=== PATIENT | male | born 1980 | race Caucasian/White ===

== ENCOUNTER → 2017-03-26 | Outpatient (CLI) | payer OTHER ==
[~2017-03-26] MED LIST: IBUP-1459 PO; ZNTT/150 PO
--- NOTE | 2017-03-26 14:46 | DIAGNOSTIC IMAGING REPORT ---
LUMBAR SPINE 5 VIEWS HISTORY: Low back pain. FALL AT WORK COMPARISON: None. FINDINGS: There is no fracture. No subluxation. Mild disc space narrowing at L5-S1. Small posterior fusion defect at S1. IMPRESSION: No fracture or subluxation within the lumbar spine. Electronically signed by: Epifanio Smith M.D. 03/26/2017 2:45 PM Dictated Date/Time: 03/26/2017 2:42 PM
== END | disposition home or self-care (01) ==
LOC: C.RAD1850 14:20
PROVIDERS: ATTEND Nurse Practitioner Family
DX: S39.012A Strain of muscle, fascia and tendon of lower back, initial encounter (principal); X58.XXXA Exposure to other specified factors, initial encounter; Y99.0 Civilian activity done for income or pay

== ENCOUNTER 2017-07-09 10:45 | Observation (INO) | payer OTHER ==
[2017-06-09 07:55] VITALS: BMI 33.0
[2017-06-23 13:20] LABS: BASO % 0.3 %; BASO ABS # 0.02 K/uL (0-0.2); COMPLETE YES; EOS % 1.8 %; HEMATOCRIT 47.9 % (42-52); IG% 1.1 %; LYMPH ABS # 2.53 K/uL (1.2-3.4); MEAN CELL VOLUME 90.7 fL (80-100); MEAN CORPUSCULAR HEMOGLOBIN 30.5 pg (25-34); MEAN CORPUSCULAR HGB CONC 33.6 g/dl (32-36); MEAN PLATELET VOLUME 10.8 fL (7.4-10.4); MONO % 10.1 %; NEUT % 51.7 %; PLATELET COUNT 252 K/uL (130-400); RED BLOOD COUNT 5.28 M/uL (4.7-6.1); WHITE BLOOD COUNT 7.22 K/uL (4.8-10.8)
[2017-07-09] VITALS (7 sets, daily range): BP systolic 128–145; BP diastolic 77–86; PULSE 57–86; TEMP 36.3–37; O2SAT 91–98; Ht 185.4 cm; Wt 116.0 kg
[~2017-07-09] VITALS: Ht 185.4 cm; Wt 116.0 kg
[~2017-07-09 10:45] MED LIST changes: +CEFAZOLIN 2000 MG/60 ML D5W 60 ML IV SCH; +LACTATED RINGER'S 1000ML 1,000 ML IV SCH; +LACTATED RINGER'S 1000ML 500 ML IV ONE; +NSS 1000ML IV SCH
[2017-07-09] MEDS ORDERED: MIDAZOLAM HCL 1 MG/ML 2ML VIAL ONE (11:43)
[2017-07-09] MEDS ORDERED: FENTANYL CITRATE INJ 50 MCG/1 ML 2 ML VIAL ONE ×2 (11:43)
[2017-07-09] MEDS ORDERED: LIDOCAINE HCL 2% 2 ML VIAL (20MG/ML) ONE (12:02)
[2017-07-09] MEDS ORDERED: LARYING-O-JET KIT (LTA) ONE ×2 (12:02)
[2017-07-09] MEDS ORDERED: PROPOFOL IV EMULSION 10 MG/ML 20 ML VIAL IV ONE (12:02)
[2017-07-09] MEDS ORDERED: ROCURONIUM BROMIDE 10 MG/ML 5 ML VIAL IV ONE (12:02)
[2017-07-09] MEDS ORDERED: GLYCOPYRROLATE INJ 0.2 MG/ML VIAL ONE (12:03)
[2017-07-09] MEDS ORDERED: ONDANSETRON INJ 2 MG/ML 2 ML VIAL ONE (12:03)
[2017-07-09] MEDS ORDERED: NEOSTIGMINE METHYLSULFATE 5 MG/5 ML SYR ONE (12:03)
--- NOTE | 2017-07-09 12:39 | History and Physical ---
History & Physical Date Jul 09, 2017. Chief Complaint Lumbar spine difficulty and leg pain History of Present Illness The patient is a 37 year old male with complaints of lumbar spine difficulty leg pain paresthesias numbness and weakness Past Medical/Surgical History Medical history Obesity reflex apnea graft negative for kidney renal issues carcinoma negative. No difficulty with anesthesia no anemia negative diabetes History left leg surgery 1991 occasional ibuprofen allergies negative Additional History Hepatic Disease: No Endocrine Disorder: No Kidney Disease: No Hypertension: No Heart Disease: No Bleeding Tendencies: No Infectious Diseases: No Allergies Coded Allergies: No Known Allergies (Unverified , 07/09/17) Home Medications Scheduled Ranitidine (Zantac), 150 MG PO QAM Scheduled PRN Ibuprofen (Motrin), 400 MG PO Q6H PRN for Pain Physical Examination Skin: warm/dry Eyes: normal inspection ENT: normal ENT inspection Head: normocephalic Neck: supple Respiratory/Chest: lungs clear Cardiovascular: regular rate, rhythm Abdomen / GI: normal bowel sounds Back: normal inspection Extremities: normal inspection Genitourinary - Male: normal male genitalia Neurologic/Psych: no motor/sensory deficits Diagnosis Disc herniation lumbar spine ASA Classification: ASA Class II Plan of Treatment Lumbar spine discectomy L5-S1
[2017-07-09] MEDS ORDERED: GELATIN SPONGE SZ 100 ONE (12:43)
[2017-07-09] MEDS ORDERED: BUPIVACAINE/EPINEPHRINE 0.5% MPF 1:200,000 10 ML VIAL ONE (12:43)
[2017-07-09] MEDS ORDERED: THROMBIN FOR SOLN 20000 UNIT KIT ONE (12:43)
[2017-07-09] MEDS ORDERED: VANCOMYCIN HCL 1000MG/20ML VIAL ONE (12:44)
[2017-07-09] MEDS ORDERED: BACITRACIN 50000 UNIT VIAL ONE (12:44)
[2017-07-09] MEDS ORDERED: HYDROmorphone INJ 2 MG/ML SYR/VIAL ONE (13:43)
--- NOTE | 2017-07-09 14:44 | [facility] Operative Report ---
Operative Report Operative Date Jul 09, 2017. Pre-Operative Diagnosis Disc herniation lumbar spine L5-S1 Post-Operative Diagnosis Disc herniation lumbar spine L5-S1 Procedure(s) Performed L5-S1 Discectomy Surgeon Dr. Bruce Black Fresh Work Wrapper Layer Surgeon(s) Yovani Howell PA-C Estimated Blood Loss 20ML Findings Disc herniation lumbar spine L5-S1 Specimens none per surgeon Dr. Bruce Black Complication(s) None Disposition Recovery Room / PACU Description of Procedure Description of procedure Patient was taken to the operating room a general intubated anesthetic provided to the patient. Placed prone on the [place] table First scrubbed prepped draped sterile. We made a skin incision over the L5-S1 interspace dissecting the soft tissue and muscle layer down to the lamina and ligamentum flavum. Thank you We did upgoing laminotomy of 5 downgoing laminotomy foraminotomies at S1. We took off ligamentum flavum. We retracted the dura and nerve root in a medial direction off the left-hand side. We incised the disc with a 15 scalpel blade using various size pituitary Ronald juris did a complete discectomy 5 S1. Irrigated closed in layers over vancomycin powder and Hemovac drain. I placed a small fat graft over the dura close subcuticular layer with 2-0 Vicryl suture 3-0 nylon skin. Needle count correct at the close of her no complications I attest to the content of the Intraoperative Record and any orders documented therein. Any exceptions are noted below.
[2017-07-09] MEDS ORDERED: ACETAMINOPHEN 325 MG TAB PO PRN (14:45)
[2017-07-09] MEDS ORDERED: METOCLOPRAMIDE HCL INJ 5 MG/ML 2 ML VIAL IV PRN (14:45)
[2017-07-09] MEDS ORDERED: MAGNESIUM HYDROXIDE SUSP 30 ML UDC PO PRN (14:45)
[2017-07-09] MEDS ORDERED: HYDROmorphone INJ 2 MG/ML SYR/VIAL IV PRN ×2 (14:45→15:00)
[2017-07-09] MEDS ORDERED: PROMETHAZINE HCL INJ 12.5 MG in SODIUM CHLORIDE 0.9% 50ML 50 ML IV PRN (14:45)
[2017-07-09] MEDS ORDERED: ONDANSETRON INJ 2 MG/ML 2 ML VIAL IV PRN ×2 (14:45→15:00)
[2017-07-09] MEDS ORDERED: HYDROmorphone INJ 1 MG/ML SYR IV PRN (14:45)
[2017-07-09] MEDS ORDERED: OXYCODONE/ACETAMINOPHEN 5-325 TAB PO PRN (14:45)
[2017-07-09] MEDS ORDERED: LORAZEPAM 1 MG TAB PO PRN (14:45)
[2017-07-09] MEDS ORDERED: LORAZEPAM INJ 1 MG in SYRINGE 0.5 ML IV PRN (14:45)
--- NOTE | 2017-07-09 14:48 | DIAGNOSTIC IMAGING REPORT ---
Radiology SPINE ONE VIEW, ANY LEVEL CLINICAL HISTORY: 37 years-old Male presenting with L5-S1 DISCECTOMY. TECHNIQUE: 1 fluoroscopic spot image(s) obtained as part of an intraoperative procedure. COMPARISON: 03/26/2017. FINDINGS/IMPRESSION: Normal anatomic alignment of the lower lumbar spine. Surgical material projects over the posterior elements of the L5-S1 level. Please see surgical report for further details. Fluoroscopy dosage (mGy): Not available. Fluoroscopy time: 1 second. Number of fluoroscopic spot images: 1. Electronically signed by: Dave Soriano M.D. 07/09/2017 2:47 PM Dictated Date/Time: 07/09/2017 2:46 PM
[2017-07-09] MEDS ORDERED: ATROPINE SULFATE 0.1 MG/ML 5ML SYR IV PRN (15:00)
[2017-07-09] MEDS ORDERED: EpHEDrine SULFATE INJ 50 MG/ML AMP IV PRN (15:00)
[2017-07-09] MEDS ORDERED: PHENYLEPHRINE 100MCG/ML 5ML SYR IV PRN (15:00)
[2017-07-09] MEDS ORDERED: IV FLUIDS COMPLETED PRN (15:15)
--- NOTE | 2017-07-09 15:46 | Anesthesiology Progress Note ---
Anesthesia Post Op Note Date & Time Jul 09, 2017 at 15:46 Vital Signs Pain Intensity: 4 Vital Signs Past 12 Hours Date Time Temp Pulse Resp B/P (MAP) Pulse Ox O2 Delivery O2 Flow Rate FiO2 07/09/17 15:35 54 18 134/81 90 Room Air 07/09/17 15:25 36.3 58 12 145/86 93 Room Air 07/09/17 15:15 59 16 135/92 93 Room Air 07/09/17 15:05 57 19 149/85 95 Room Air 07/09/17 14:55 67 12 136/96 97 Oxymask 10 07/09/17 14:49 36.0 60 10 139/85 100 Oxymask 10 07/09/17 11:06 36.4 86 18 128/85 (99) 98 Room Air Notes Mental Status: alert / awake / arousable, participated in evaluation Pt Amnestic to Procedure: Yes Nausea / Vomiting: adequately controlled Pain: adequately controlled Airway Patency, RR, SpO2: stable & adequate BP & HR: stable & adequate Hydration State: stable & adequate Anesthetic Complications: no major complications apparent
[2017-07-09] MEDS: SODIUM CHLORIDE 0.9% 1000ML 1,000 ML IV SCH (17:24)
[2017-07-09] MEDS: KETOROLAC TROMETHAMINE 30 MG/ML VIAL IV SCH ×2 (17:27→23:41)
[2017-07-09] MEDS: DEXAMETHASONE INJ 10 MG in SYRINGE 0 ML IV SCH (22:02)
[2017-07-09] MEDS: CEFAZOLIN IV 2,000 MG in DEXTROSE 5% 50ML 50 ML IV SCH (22:02)
[2017-07-09] MEDS: OXYCODONE/ACETAMINOPHEN 5-325 TAB PO PRN (23:42)
[2017-07-10] MEDS: OXYCODONE/ACETAMINOPHEN 5-325 TAB PO PRN ×2 (03:51→08:08)
[2017-07-10] MEDS: SODIUM CHLORIDE 0.9% 1000ML 1,000 ML IV SCH (03:52)
[2017-07-10 04:20] VITALS: BP 133/70; PULSE 58; TEMP 36.4; O2SAT 94
[2017-07-10] MEDS: CEFAZOLIN IV 2,000 MG in DEXTROSE 5% 50ML 50 ML IV SCH (05:36)
[2017-07-10] MEDS: KETOROLAC TROMETHAMINE 30 MG/ML VIAL IV SCH (05:36)
[2017-07-10] MEDS: DEXAMETHASONE INJ 10 MG in SYRINGE 0 ML IV SCH (05:36)
[2017-07-10] MEDS ORDERED: BISACODYL 10 MG SUPP PR PRN (06:00)
[2017-07-10] MEDS ORDERED: BISACODYL 5 MG TABEC PO PRN (06:00)
[2017-07-10] MEDS ORDERED: NURSING VERBAL MED ORDER ONE (07:00)
[2017-07-10 07:14] VITALS: BP 149/80; PULSE 61; TEMP 36.4; O2SAT 92
--- NOTE | 2017-07-10 07:46 | Discharge Instructions ---
Discharge Instructions Date of Service Jul 10, 2017. Admission Reason for Admission: Lumbar Disc Herniation L5-S1 Discharge Discharge Diagnosis / Problem: same Discharge Goals Goal(s): Improve function Activity Recommendations Activity Limitations: as noted below Lifting Limitations: until after follow-up appointment Exercise/Sports Limitations: until after follow-up appointment May Resume Sexual Activity: after follow-up appointment Shower/Bathe: keep incision dry home, rest, recover . Instructions / Follow-Up Instructions / Follow-Up MEDICATIONS: Please take your prescriptions as instructed at your pre-op appointment. SPECIAL CARE: The following information is intended to answer some of the common questions and concerns regarding your surgery. Each patient is an individual and receives individual counselling throughout the course of treatment, from diagnosis to surgery all the way through recovery. What follows is not an exhaustive list, but should be a useful guide to some of the common questions and concerns patients have regarding their surgeries. These are not provided to keep you from calling us; rather, they give you something accurate and concrete to reference as you recover from your procedure. If you need us, we are available to you. As always, if you are not sure about something, call us at [phone]. MEDICAL EMERGENCIES: For these conditions, call 911 or go to your local hospital-based Emergency Department - not [facility] or equivalent. * Paralysis * Severe chest pain or difficulty breathing * Swelling or redness of either leg Spine procedures can be rather complex and though complications are rare, they do occur. In such cases, effective advice regarding emergency situations cannot always be addressed over the telephone. You may be referred to the emergency department for more effective management of your problem. Activity Limitations: It is important to give your body time to heal, so please limit your activities : * In general, don't do anything that moves your spine too much. You should avoid contact sports, twisting or heavy lifting while you recover. * 5-10 pounds is all you should attempt to lift. * You should not plan on driving for approximately 3 weeks and you should avoid traveling more than 30-45 minutes at a time. Longer trips should be broken down with walking breaks spaced appropriately. * Physical therapy is not usually required. * Walking and good posture practices will help you recover and regain your function. * Avoid straining or sudden changes in position. * In general, the goal is to take it easy and recover. Don't cause any new problems. Just relax. Showers: * Do not take a bath, use a Jacuzzi or hot tub or otherwise submerge your incision. * It is usually safe to take a shower 4-5 days after your surgery. * Your incision does not require any special creams or ointments. * Simply clean it with soap and water, dry and re-dress with a clean bandage afterwards. Incision: * Keep incision clean, dry and protected until your first follow-up appointment. * Some amount of drainage and redness is normal. Any drainage should be fairly clear and not have a foul odor. * If you feel anything is wrong or you have excessive drainage, please call us. * Your stitches and cesario will be removed 10-14 days after your surgery. At the time of your first post-op visit. * Neck surgeries are typically closed with a suture underneath the skin. The steri-strips over the incision should be maintained until we see you in the office. Bracing: * You may be provided with a back or neck brace to encourage good posture and prevent injury. It will remind you not to do too much as you heal and will alert others to the fact that you have had a surgery. * Back braces may be removed for showers and when you are resting at home. They must be worn when you are walking around for any period of time or for travel. * For neck surgery, you will likely be provided with two cervical collars. The soft collar ([place] or foam rubber) is worn most commonly throughout the day and while sleeping. The plastic collar (provided at the hospital) is for showering/bathing. * Except while eating, collars should remain in place. More specifically, bracing is provided for a purpose and should be worn. * Please obtain your brace or collars prior to your operation and bring them to the hospital with you on the day of surgery. * You should also bring your collars to your post-op appointment with Dr. Black. You should always take good care of your body and practice healthy habits, especially following surgery. You should: * Follow your doctor's treatment plan * Sit and stand properly with good posture (ears over shoulders, shoulders over hips) Don't slouch * Learn to lift correctly * Exercise regularly (low-impact aerobic exercise is especially good, but check with your doctor first) * Generally, be up and walking for 5-10 minutes at a time at least 3-4 times per day from the day you get home * Increasing walking to tolerance until you can walk for 20-30 minutes at a time * Attain and maintain a healthy body weight * Eat healthy foods ( a well-balanced, low-fat diet rich in fruits and vegetables) and get enough calcium * Avoid excessive use of alcohol When to call our office - If you notice any of the following: * Increased pain not relieve by pain medicine * Fevers greater then 100 degrees F, chills or flu symptoms * Increased redness around incision * Drainage from the incision that is not clear * Any foul smelling drainage * Swelling or fluid collection beneath the skin Miscellaneous: * In the hospital, you may be given a walker or cane for support while walking. These are temporary needs and are intended to prevent injuries due to falls. You may discontinue them when you feel strong and steady enough on your feet. * Sleep in a comfortable position. We find that many patients find a lounge chair or recliner with several pillows to be beneficial in the early post-operative period. * The support stockings should be used for 7-10 days and may be discontinued when you are back to walking more and conducting usual household activities. No problem is insignificant. We are here to help you and get you well. Contact us at [phone]. Definitions: Foraminotomy: If part of the disc or a bone spur (osteophyte) is pressing on a nerve as it leaves the vertebra (through an exit called the foramen), a foraminotomy may be done. Otomy means "to make an opening." A foraminotomy is making the opening of the foramen larger, so the nerve can exit without being compressed. Laminotomy: Similar to the foraminotomy, a laminotomy makes a larger opening, this time in your bony plate protecting your spinal canal and spinal cord (the lamina). The lamina may be pressing on your nerve, so the surgeon may make more room for the nerves using a laminotomy. Laminectomy: Sometimes, a laminotomy is not sufficient. The surgeon may need to remove all or part of the lamina. This procedure is called a laminectomy. This can often be done at many levels without any harmful effects. Current Hospital Diet Patient's current hospital diet: Regular Diet Discharge Diet Recommended Diet: Regular Diet Procedures Procedures Performed: L5-S1 Discectomy Pending Studies Studies pending at discharge: no Medical Emergencies . Who to Call and When: Medical Emergencies: If at any time you feel your situation is an emergency, please call 911 immediately. . Non-Emergent Contact Non-Emergency issues call your: Surgeon . "Provider Documentation" section prepared by Bruce Black. . VTE Core Measure Inpt VTE Proph given/why not?: Treatment not indicated
--- NOTE | 2017-07-10 07:49 | History & Physical Bridge Note ---
H&P Re-Evaluation Bridge Note: I have examined the patient, reviewed the History & Physical and in the interval since the performance of the History & Physical I have noted the following changes of clinical significance: No changes noted
--- NOTE | 2017-07-10 07:56 | DISCHARGE SUMMARY ---
SUBJECTIVE: Alert, oriented. Mentation normal. No pain. OBJECTIVE: Vital signs stable. Moves all 4 extremities. ASSESSMENT: Status post discectomy lumbar spine, doing well in the short run. DISPOSITION: Will discharge him home later on this morning. Instructions, precautions provided to him in the office and here at the hospital. We will see him back in the office in 10 days. He has hydrocodone at home for pain.
[2017-07-10 08:09] VITALS: BP 149/80; PULSE 61; TEMP 36.4; O2SAT 92
--- NOTE | 2017-07-10 08:41 | Anesthesiology Progress Note ---
Anesthesia Post Op Note Date & Time Jul 10, 2017 at 08:41 Vital Signs Vital Signs Past 12 Hours Date Time Temp Pulse Resp B/P (MAP) Pulse Ox O2 Delivery O2 Flow Rate FiO2 07/10/17 08:14 Room Air 07/10/17 08:09 36.4 61 18 92 Room Air 07/10/17 07:14 36.4 61 18 149/80 (103) 92 Room Air 07/10/17 04:20 36.4 58 18 133/70 (91) 94 Room Air 07/09/17 23:40 Room Air 07/09/17 23:14 36.7 63 16 143/77 (99) 93 Room Air Notes Mental Status: alert / awake / arousable, participated in evaluation Pt Amnestic to Procedure: Yes Nausea / Vomiting: adequately controlled Pain: adequately controlled Airway Patency, RR, SpO2: stable & adequate BP & HR: stable & adequate Hydration State: stable & adequate Anesthetic Complications: no major complications apparent
[2017-07-10] MEDS ORDERED: RANITIDINE HCL 150 MG TAB PO SCH (09:00)
[2017-07-10] MEDS ORDERED: POLYETHYLENE (MIRALAX) 17 GM PACK PO SCH (09:00)
== END 2017-07-10 11:25 | disposition home or self-care (01) ==
LOC: C.ACU 10:45 → C.3E 14:42 → ENRESERV 15:06
PROVIDERS: ADMIT Orthopaedic Surgery Orthopaedic Surgery of the Spine; ATTEND Orthopaedic Surgery Orthopaedic Surgery of the Spine
DX: M51.27 Other intervertebral disc displacement, lumbosacral region (principal); E66.9 Obesity, unspecified; K21.9 Gastro-esophageal reflux disease without esophagitis